=== PATIENT | female | born 1980 | race African-American/Black ===

== ENCOUNTER 2024-01-21 17:07 | Emergency (ER) | payer SELFPAY ==
[2024-01-21 17:05] VITALS: BP 184/104; PULSE 83; RESP 16; TEMP 36.9; O2SAT 98
[2024-01-21 17:15] VITALS: BP 184/104; PULSE 83; RESP 16; TEMP 36.9; O2SAT 98
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
[2024-01-21 18:00] LABS: HGB 14.1 g/dL (11.2-15.7); MCH 32.1 pg (27.0-33.0); MCHC 32.8 % (32.0-36.0); MCV 98 fL (80-95); MPV 11.6 fL (8.0-11.0); Platelet Count 294 10^3/uL (130-400); RBC 4.39 10^6/uL (3.93-5.22); RDW 12.3 % (11.7-14.6); RDW-SD 44.6 fL; WBC 6.46 10^3/uL (4.4-10.8)
[2024-01-21 18:03] LABS: Bilirubin Negative (Negative); Blood Negative (Negative); Clarity Clear (Clear); Glucose Negative (Negative); Ketones Negative (Negative); Leukocyte Esterase Negative (Negative); Nitrite Negative (Negative); Specific Gravity 1.025 (1.005-1.025); Urobilinogen 0.2 mg/dL (Up to 0.2); pH 5.5 (5-8)
[2024-01-21 18:04] LABS: Anion Gap 10.5 mmol/L (3-11); BUN 9 mg/dL (7-18); CO2 27.5 mmol/L (21.0-32.0); CREATININE 0.7 mg/dL (0.55-1.02); Calcium 9.4 mg/dL (8.5-10.1); Chloride 103 mmol/L (98-107); Estimated GFR 111.36 (mL/min/1.73m2); Glucose 104 mg/dL (74-106); Potassium 3.5 mmol/L (3.5-5.1); Sodium 141 mmol/L (136-145)
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
[2024-01-21 18:18] LABS: *AMPHETAMINES SCREEN URINE Negative (Negative); *BARBITURATES SCREEN URINE Negative (Negative); *BENZODIAZEPINES SCREEN URINE Negative (Negative); Cannabinoids THC Positive (Negative); Cocaine Screen,Urine Negative (Negative); METHADONE URINE SCREEN Negative (Negative); OPIATES URINE SCREEN Negative (Negative)
[2024-01-21 18:25] LABS: Tricyclic Antidepressants Negative (Negative)
[2024-01-21 18:49] VITALS: BP 164/93; PULSE 87; RESP 18; TEMP 36.8; O2SAT 100
[2024-01-21 19:46] VITALS: BP 160/90; PULSE 88; RESP 16; O2SAT 99
--- NOTE | 2024-01-22 07:43 | NUR.NOTE ---
Accessed chart to get information for authorization form Nursing Note:
--- NOTE | 2024-01-22 09:29 | NUR.NOTE ---
Nursing Note: Authorization form faxed to [facility] per Farida Castillo
--- NOTE | 2024-02-04 12:12 | NUR.NOTE ---
Access chart to get insurance information for [facility]. Nursing Note:
== END 2024-01-21 19:46 | disposition home or self-care (01) ==
PROVIDERS: Emergency Provider Nurse Practitioner Family
DX: R03.0 Elevated blood-pressure reading, without diagnosis of hypertension (principal); Z59.00 Homelessness unspecified
CPT/HCPCS: 00123; 80048; 80307; 81025; 85027; 99283; 81003